=== PATIENT | male | born 1950 | race Caucasian/White ===

== ENCOUNTER 2017-07-06 08:46 | Emergency (ER) | payer MEDICARE ==
[~2017-07-06] VITALS: Ht 165.1 cm; Wt 95.3 kg
[2017-07-06] MEDS ORDERED: NEURONTIN 300300 M1 PO (08:58)
[2017-07-06] MEDS ORDERED: LOPRESSOR50 PO (08:59)
[2017-07-06] MEDS ORDERED: METFORMIN HCL500 MG PO (08:59)
[2017-07-06] MEDS ORDERED: NORVASC5 MG PO (08:59)
[2017-07-06] MEDS ORDERED: CLOPIDOGREL75 MG PO (09:00)
[2017-07-06] MEDS ORDERED: COZAAR 50 MG TA50 M2 PO (09:00)
[2017-07-06 09:34] LABS: ABSOLUTE BASOPHILS 0.1 thou/uL (0.0-0.2); ABSOLUTE EOSINOPHILS 0.1 thou/uL (0.0-0.7); ABSOLUTE LYMPHOCYTES 1.3 thou/uL (0.8-5.3); ABSOLUTE MONOCYTES 0.8 thou/uL (0.0-1.2); ABSOLUTE NEUTROPHILS 3.8 thou/uL (1.6-8.1); BASOPHILS 1.1 %; EOSINOPHILS 2.1 %; HEMATOCRIT 43.2 % (42.0-52.0); HEMOGLOBIN 14.4 gm/dL (14.0-18.0); LYMPHOCYTES 21.3 %; MCH 26.8 pg (26.0-34.0); MCHC 33.3 g/dL (28.0-37.0); MCV 80.7 fL (80.0-100.0); MONOCYTES 12.5 %; NUCLEATED RBCS 0 /100WBC; PLATELET COUNT* 202 thou/uL (150-400); RBC 5.35 mil/uL (4.50-6.00); RDW-CV 14.6 % (10.5-14.5); WBC 6.1 thou/uL (4.0-11.0)
[2017-07-06 09:42] LABS: CALCIUM 8.6 mg/dL (8.5-10.1); CREATININE 1.1 mg/dL (0.6-1.3); POTASSIUM 4.1 mmol/L (3.5-5.1)
[2017-07-06 09:53] LABS: ALBUMIN 3.6 g/dL (3.4-5.0); TOTAL BILIRUBIN 0.6 mg/dL (<0.1-1.0)
[2017-07-06 10:20] VITALS: BP 137/83
[2017-07-06] MEDS ORDERED: PROMETHAZINE/C118 ML PO (10:20)
[2017-07-06] MEDS ORDERED: AZITHROMYCIN 2250 MG PO (10:20)
--- NOTE | 2017-07-07 11:08 | EKG ---
[place] [address] ELECTROCARDIOGRAM REPORT Name: LELA JULIO [facility] [id number] Admission: 07/06/17 Attend Phys: Discharge: 07/06/17 Date of : 48 Report #: [id number] THIS REPORT FOR: //name// [facility] ED Test Date: 2017-07-06 Test Time: 09:24:29 Pat Name: LELA JULIO Department: Room: Gender: Patrol Supervisor: Camelia HUGHES : 1950 Requested By: Jigna Gordon Order Number: [id number] MD: Chapito Limon Measurements Intervals [place] Rate: 79 P: 58 AK: 173 QRS: 77 QRSD: 148 T: 14 QT: 397 QTc: 456 Interpretive Statements Sinus rhythm Probable left atrial enlargement Right bundle branch block No previous ECG available for comparison Electronically Signed On 07-07-2017 11:07:49 CDT by Chapito Limon [email or web address] <ELECTRONICALLY SIGNED> By: Chapito Limon MD, [facility] 07/07/17 1107 0924 3 Chapito Limon MD, FACC /EPI
== END 2017-07-06 10:26 | disposition home or self-care (01) ==
LOC: M.ERS 08:46
PROVIDERS: Personal Emergency Response Attendant
DX: J40 Bronchitis, not specified as acute or chronic (principal); E11.9 Type 2 diabetes mellitus without complications; I10 Essential (primary) hypertension